=== PATIENT | male | born 1975 | race Caucasian/White ===

== ENCOUNTER 2024-12-04 08:55 | Inpatient (IN) | payer OTHER ==
[2024-12-04 09:31] VITALS: BMI 23.8
[2024-12-04] MEDS ORDERED: ACETAMINOPHEN 325 MG TABLET (FP) PO PRN (10:19)
[2024-12-04] MEDS ORDERED: IBUPROFEN 400 MG TABLET (FP) PO PRN (10:19)
[2024-12-04] MEDS ORDERED: METHOCARBAMOL 500 MG TABLET PO PRN (10:19)
[2024-12-04] MEDS ORDERED: LOPERAMIDE HCL 2 MG CAPSULE PO PRN (10:19)
[2024-12-04] MEDS ORDERED: AMMONIUM LACTATE 12% LOTION 225 GM BOTTLE TP PRN (10:19)
[2024-12-04] MEDS ORDERED: hydrOXYzine PAMOATE 25 MG CAPSULE (FP) PO PRN (10:19)
[2024-12-04] MEDS ORDERED: BENZOCAINE/MENTHOL (CHLORASEPTIC ) LOZENGE MM PRN (10:19)
[2024-12-04] MEDS ORDERED: DICYCLOMINE HCL 10 MG CAPSULE PO PRN (10:19)
[2024-12-04] MEDS ORDERED: guaiFENesin 600 MG TABLET.ER (FP) PO PRN (10:19)
[2024-12-04] MEDS ORDERED: BISMUTH SUBSALICYLATE 524 MG/30 ML PO PRN (10:19)
[2024-12-04] MEDS ORDERED: NICOTINE POLACRILEX 2 MG GUM BUC PRN (10:19)
[2024-12-04] MEDS ORDERED: MAG HYDROX/AL HYDROX/SIMETH 30 ML UNIT-DOSE CUP PO PRN (10:19)
[2024-12-04] MEDS ORDERED: BENZONATATE 200 MG CAPSULE PO PRN (10:19)
[2024-12-04] MEDS ORDERED: NALOXONE (NARCAN) HCL 4 MG/0.1 ML SPRAY NS PRN (10:19)
[2024-12-04] MEDS ORDERED: ONDANSETRON *ODT* 4 MG TABLET SL PRN (10:19)
[2024-12-04] MEDS ORDERED: MAGNESIUM HYDROX 2400MG/30ML ORAL SUSPENSION 30 ML CUP PO PRN (10:19)
[2024-12-04] MEDS ORDERED: POLYETHYLENE GLYCOL (HEALTHYLAX) 3350 17 GM PACKET PO PRN (10:19)
[2024-12-04] MEDS ORDERED: IBUPROFEN 600 MG TABLET (FP) PO PRN (10:19)
[2024-12-04] MEDS: MUPIROCIN 2% TOPICAL OINTMENT 22 GM TUBE TP SCH (14:16)
[2024-12-04 19:47] LABS: HIV INTERPRETATION NEGATIVE (NEGATIVE)
[2024-12-04 20:07] LABS: HCV DIAGNOSTIC IN-HOUSE W/RFLX REACTIVE (NONREACTIVE)
[2024-12-04] MEDS: QUEtiapine FUMARATE 100 MG TABLET (FP) PO SCH (22:32)
[2024-12-04] MEDS: MELATONIN 5 MG TABLETS PO SCH (22:32)
[2024-12-04] MEDS: MIRTAZAPINE 15 MG TABLET (FP) PO SCH (22:32)
[2024-12-04] MEDS: THIAMINE 100 MG TABLET PO SCH (22:32)
[2024-12-05] MEDS: PRENATAL VITAMINS W/ FOLIC ACID TABLET (FP) PO SCH (09:34)
[2024-12-05 11:09] LABS: MCHC 30.9 g/dl (32.3-36.5); MEAN CELL VOLUME 91.1 fl (79.0-92.2); MEAN PLT VOLUME 11.4 fl (9.4-12.4); RDW 14.1 % (12.1-15.9)
[2024-12-05 11:21] LABS: GLUCOSE,RANDOM 90.0 mg/dL (74-106)
[2024-12-05 11:22] LABS: TOT PROT 8.1 g/dl (6.4-8.2)
[2024-12-05 11:23] LABS: CO2 29.0 mmol/L (21-32)
[2024-12-05 11:24] LABS: ALK PHOS 71.0 U/L (40-150)
[2024-12-05 11:27] LABS: CREATININE 0.74 mg/dL (0.55-1.3); SGOT/AST 20.0 U/L (5-34); SGPT/ALT 13.0 U/L (0-55)
[2024-12-09 17:08] VITALS: PULSE 60
[2024-12-09 21:24] VITALS: BP 116/76; RESP 17
[2024-12-10 07:07] VITALS: TEMP 97.8
== END 2024-12-10 09:14 | disposition home or self-care (01) | DRG 773 ==
LOC: YASAS 08:55 → SUATTDRO 08:55 → Y6N 11:31
PROVIDERS: ADMIT Family Medicine; ATTEND Counselor Addiction (Substance Use Disorder)
PROC: HZ2ZZZZ Detoxification Services for Substance Abuse Treatment (ICD-10-PCS; principal; 2024-12-04)
DX: F11.23 Opioid dependence with withdrawal (principal); F14.20 Cocaine dependence, uncomplicated; F12.20 Cannabis dependence, uncomplicated; F17.210 Nicotine dependence, cigarettes, uncomplicated; F31.9 Bipolar disorder, unspecified; F19.282 Other psychoactive substance dependence with psychoactive substance-induced sleep disorder; F19.24 Other psychoactive substance dependence with psychoactive substance-induced mood disorder; B18.2 Chronic viral hepatitis C; Z59.02 Unsheltered homelessness
CPT/HCPCS: 36415; 80053; 80305; 80307; 85027; 86780; 86803; 87389; 87522; 93005; 93010